=== PATIENT | female | born 1975 | race Caucasian/White ===

== ENCOUNTER 2016-06-15 17:24 | Emergency (ER) | payer SELFPAY ==
[2016-06-15 17:41] VITALS: BP 121/60; PULSE 98; TEMP 98.5; BMI 24.7
--- NOTE | 2016-06-15 17:49 | EDPRACDOC ---
- General Information Chief Complaint: Flu-Like Symptoms Stated Complaint: COLD & CONGESTION WITH COUGH Time Seen by Provider: 06/15/16 17:45 Information Source: Patient Mode Of Arrival: Car Home Medications: Home Medications Amoxicillin Trihydrate [Amoxicillin] 500 mg PO TID #30 tab 06/15/16 CITALOPRAM (anti-depressant) [Celexa] 10 mg PO DAILY 06/15/16 Prednisone [Deltasone, Orasone] 20 mg PO BID #12 tab 06/15/16 - History of Present Illness Onset: 7 DAYS AGO HPI: PT PRESENTS STATING SHE IS HAVING FACIAL PAIN AND PRESSURE. Shortness of Breath: None Relevant History of: Reports: None Cough: Reports: Non-productive Rhinorrhea: Reports: Bloody, Green Fever Severity/Quality: Reports: no fever Ear Symptoms: Reports: None Oral Intake: Normal Urinary Output: Normal ED Past Medical History - History Reviewed Yes Nurses notes reviewed and agree except as marked EDM Review of Systems - Review of Systems ROS Negative Except as Marked: Yes All systems reviewed and were negative except as marked - Physical Exam Constitutional: Alert Oriented to: Time, Person, Place Last recorded Vital Signs: Last Vital Signs Temp 98.5 F 06/15/16 17:41 Pulse 98 06/15/16 17:41 Resp 18 06/15/16 17:41 BP 121/60 06/15/16 17:41 Pulse Ox 99 06/15/16 17:41 Oxygen Pulse Oxygen Saturation 99 O2 Device Oxygen Flow Rate Fraction of Inspired Oxygen ( FIO2) - HEENT Head: Normal ( normocephalic) Eye Exam: Normal (PERRL, EOMI, Sclera white) Oropharynx: Normal (Pharynx:Moist without exudate,Gums-no swelling) Nose: No Symptoms Reported (septum midline) Neck: Normal (FROM, trachea at midline) HEENT Comment: FACIAL PRESSURE NOTED WITH PALPATION - Respiratory/Cardiovascular Respiratory: Normal - CTA (BBS clear to auscultation without adventitious sounds ) Cardiovascular: Normal (RRR without murmur, gallop or rub) - GI Auscultation: Normal (NABS) Palpation: Normal (Soft,No rebound or guarding, non distended) Tenderness: Non tender Hair's Sign: Negative Rectal Exam: Deferred - Musculoskeletal Back: Normal (Non-Tender) Extremities: Normal (Normal tone, Pulses 2+ No cyanosis or edema, FROM) - Integumentary Skin: Normal, Warm, Dry Lymphatics: Normal (no adenopathy) - Neurologic Memory Impaired: Normal Motor Function: Normal (Normal tone, Pulses 2+ No cyanosis or edema, FROM) Cranial Nerve: Normal (CN II-X11 intact sensation, strength 5/5) Cerebellar: Normal Mood Description: Normal Perception: Normal - Differential Diagnosis Sinusitis Decision Time to Discharge: 17:49 - Departure Disposition: Home Condition: Stable Final Diagnosis: Acute bacterial sinusitis Instructions: Sinusitis (ED) Education/Counseling Given To: Patient Education/Counseling Given Regarding: Diagnosis, Treatment, Prognosis, Follow Up Referrals: Belem Hernandez MD [Primary Care Provider] - One Week Prescriptions: Amoxicillin Trihydrate [Amoxicillin] 500 mg PO TID #30 tab Prednisone [Deltasone, Orasone] 20 mg PO BID #12 tab Additional Instructions: INCREASE FLUID INTAKE. FOLLOW UP WITH PRIMARY CARE PROVIDER NEXT WEEK. TAKE ALL ANTIBIOTICS PRESCRIBED. RETURN TO THE ED FOR WORSENING SYMPTOMS OR CONCERNS.
== END 2016-06-15 17:54 | disposition home or self-care (01) ==
LOC: ED 17:24 → EDMC 17:54
DX: J01.90 Acute sinusitis, unspecified (principal); B96.89 Other specified bacterial agents as the cause of diseases classified elsewhere
CPT/HCPCS: 99283